=== PATIENT | male | born 1965 ===

== ENCOUNTER 2023-01-01 10:09 | Outpatient (CLI) | payer OTHER, SELFPAY ==
--- NOTE | ~2023-01-01 | XR_ITS ---
Cervical Spine: AP, lateral, open-mouth views Clinical History: Pain Findings: The normal lordotic curve is maintained. No fracture seen. Minimal grade 1 retrolisthesis o f C5 over C6 noted. There is mild degenerative disc changes C5-C6 and C6-C7. There is mild uncoverteb ral degenerative change at C3-C4. There is moderate to advanced uncovertebral degenerative change at C5-C6 and C6-C7. Pre-vertebral soft tissues are unremarkable. Impression: Mild degenerative spondylosis overall, as detailed above. Minimal grade 1 anterolisthesis of C5 over C6. Reviewed, dictated and finalized at location . 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 Minimal grade 1 anterolisthesis of C5 over C6.
--- NOTE | ~2023-01-01 | XR_ITS ---
Lumbosacral Spine: AP, oblique, and lateral views Clinical History: Pain Findings: The normal lordotic curve is maintained. The vertebral bodies and posterior elements are i ntact. There is moderate degenerative disc narrowing at L5-S1. The sacroiliac joints are normally ou tlined. Impression: Moderate degenerative disc narrowing at L5-S1. Reviewed, dictated and finalized at [facility]. COMM[employer]ICATION[employer] NETWORK [employer]NER Impression: Moderate degenerative disc narrowing at L5-S1.
--- NOTE | ~2023-01-01 | CT_ITS ---
EXAMINATION: CT lung screening DATE: 01/01/2023 10:25 INDICATION: Personal history of nicotine dependence, current smoker with 45 pack year history TECHNIQUE: Computed tomography (CT) of the chest was performed without intravenous contrast. The dose -length product (DLP) was 93.11 mGy-cm. Automated exposure control and iterative reconstruction techn Rel[employer] were employed. COMPARISON: None FINDINGS: There is mild emphysema. There are multiple small nodules of the right upper lobe which darren sure up to 5 mm. No pleural effusion or pneumothorax. No pathologically enlarged thoracic lymph nodes are identified. The heart size is normal. Calcified pulmonary nodules and calcified left hilar and m ediastinal lymph nodes are consistent with old granulomatous disease. There is marked decrease in the coronal diameter of the intrathoracic trachea, consistent with COPD. The gallbladder is surgically a bsent. There is mild thoracic spondylosis. IMPRESSION: 1. Lung-RADS category 2: Benign appearance or behavior. Continue annual screening with noncontrast lo w-dose chest CT in 12 months. 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 Lung-RADS category 2: Benign appearance or behavior. Continue annual screeni ng with noncontrast low-dose chest CT in 12 months.
== END 2023-01-01 10:10 ==
LOC: MICIMG 10:11
PROVIDERS: PCP Family Medicine; Visit Provider Physician Assistant Medical
DX: Z12.2 Encounter for screening for malignant neoplasm of respiratory organs (principal); F17.210 Nicotine dependence, cigarettes, uncomplicated; M54.12 Radiculopathy, cervical region; M48.07 Spinal stenosis, lumbosacral region; M47.812 Spondylosis without myelopathy or radiculopathy, cervical region
CPT/HCPCS: 71271; 72050; 72110